=== PATIENT | female | born 1980 | race Caucasian/White ===

== ENCOUNTER 2017-08-24 09:12 | Emergency (ER) | payer BC, MEDICAID, OTHER ==
[2017-08-24] MEDS: SOD CHLORIDE 0.9% 1,000 ML IV (10:04)
[2017-08-24] MEDS: KETOROLAC 30 MG INJ IV (10:04)
[2017-08-24 10:29] LABS: ADD UMIC YES; UR ASCORBIC ACID NEGATIVE (NEGATIVE); UR BILIRUBIN (Dip) NEGATIVE (NEGATIVE); UR BLOOD (Dip) 2+ mg/dL (NEGATIVE); UR CLARITY SLIGHTLY CLOUDY (CLEAR); UR COLOR YELLOW (YELLOW); UR GLUCOSE (Dip) NEGATIVE (NEGATIVE); UR KETONES (Dip) NEGATIVE (NEGATIVE); UR LEUKOCYTE ESTERASE (Dip) NEGATIVE Leu/ul (NEGATIVE); UR MUCUS FEW /HPF (NONE SEEN); UR NITRITE (Dip) NEGATIVE (NEGATIVE); UR RBC 11 /HPF (0-5); UR SQUAMOUS EPITHELIAL CELL FEW /HPF (FEW); UR TOTAL PROTEIN (Dip) NEGATIVE (NEGATIVE); UR UROBILINOGEN (Dip) NEGATIVE (NEGATIVE); UR WBC 2 /HPF (0-5)
== END 2017-08-24 11:25 | disposition home or self-care (01) ==
LOC: FTE 09:12
DX: J06.9 Acute upper respiratory infection, unspecified (principal)
CPT/HCPCS: 71046; 81001; 87400; 96374; 99284-25

== ENCOUNTER 2019-02-21 11:18 | Emergency (ER) | payer BC, MEDICAID ==
[2019-02-21] MEDS: DIPHENHYDRAMINE 25 MG CAP PO (12:09)
[2019-02-21] MEDS: DEXAMETHASONE 10 MG/ML 1 ML INJ IM (12:09)
[2019-02-21] MEDS: IBUPROFEN 600 MG TAB PO (12:09)
== END 2019-02-21 12:30 | disposition home or self-care (01) ==
LOC: FTE 11:18
DX: S50.861A Insect bite (nonvenomous) of right forearm, initial encounter (principal); S90.862A Insect bite (nonvenomous), left foot, initial encounter; W57.XXXA Bitten or stung by nonvenomous insect and other nonvenomous arthropods, initial encounter; Y92.89 Other specified places as the place of occurrence of the external cause
CPT/HCPCS: 96372; 99284-25